=== PATIENT | female | born 1975 | race Caucasian/White ===

== ENCOUNTER 2023-03-24 15:22 | Outpatient (NON) | payer OTHER, SELFPAY ==
[2023-03-24 15:53] LABS: Influenza A QL RT-PCR Positive (Negative); Influenza B QL RT-PCR Negative (Negative); RSV RNA, RT-PCR Positive (Negative); SARS-CoV-2 RNA PCR Negative (Negative)
== END 2023-03-24 15:23 | disposition home or self-care (01) ==
LOC: ANHLAB 15:23
PROVIDERS: Visit Provider Hospitalist
DX: Z20.822 Contact with and (suspected) exposure to COVID-19 (principal)
CPT/HCPCS: 87637

== ENCOUNTER 2023-12-24 09:27 | Outpatient (CLI) | payer OTHER, SELFPAY ==
--- NOTE | ~2023-12-24 | MM_ITS ---
EXAMINATION: MM screening tyrel BI w mino HISTORY: Screening mammogram TECHNIQUE: Craniocaudal and mediolateral oblique 3-D tomosynthesis images were obtained and synthetic 2-D images were generated. CAD analysis was submitted and interpreted. COMPARISON: No prior mammogram is available for comparison at this institution. BREAST PARENCHYMAL COMPOSITION:Not Dense. The breasts are almost entirely fatty FINDINGS: No suspicious mass, calcification, or architectural distortion are identified in either dash ast to suggest malignancy. There has been no suspicious interval change. IMPRESSION: No mammographic evidence of malignancy. Recommend routine screening mammography in one year. BI-RADS Category 1: Negative Reviewed, dictated and finalized at location .
== END 2023-12-24 09:28 | disposition home or self-care (01) ==
PROVIDERS: Visit Provider Internal Medicine
DX: Z12.31 Encounter for screening mammogram for malignant neoplasm of breast (principal)
CPT/HCPCS: 77063; 77067

== ENCOUNTER 2024-01-21 22:42 | Emergency (ER) | payer OTHER, SELFPAY ==
--- NOTE | ~2024-01-21 | XR_ITS ---
XR chest 1V portable DATE: 01/21/2024 23:12 INDICATION: Shortness of breath TECHNIQUE: Portable upright AP chest on 01/21/2024 at 2311 hours COMPARISON: None FINDINGS: Heart size is within normal limits. No pulmonary infiltrate or consolidation, pleural effusion or pulmonary vascular congestion or pneumo thorax is evident. Right cervical rib. IMPRESSION: No active cardiopulmonary disease Reviewed, dictated and finalized at location A. ED SEAM OPERATOR CHAINSTITCH
[2024-01-21 22:47] VITALS: BP 119/65; PULSE 71; RESP 20; TEMP 36.6; O2SAT 95
--- NOTE | 2024-01-21 22:51 | ECG_ITS ---
Test Date: 2024-01-21 22:51:47 Measurements Intervals [place] Rate: 70 P: 121 MO: 143 QRS: 129 QRSD: 96 T: 137 QT: 440 QTc: 475 Interpretive Statements SINUS RHYTHM ARM LEADS REVERSED BASELINE WANDER- I, V6 ATYPICAL ECG No previous ECG available for comparison Electronically Signed On 01-22-2024 06:09:36 DIRECTOR OF GLOBAL SALES by Adonay Kam D.O.
[2024-01-21] MEDS: NALOXONE HCL 0.4 MG/ML VIAL 2 MG IV PUSH (23:02)
[2024-01-21 23:07] VITALS: BP 111/68; PULSE 70; RESP 14; O2SAT 95
[2024-01-21 23:15] LABS: Basophils Percent Auto 0.6 % (0.2-1.2); Eosinophils Absolute Auto 0.3 K/mm3 (0-0.3); Eosinophils Percent Auto 6.2 % (0-4.4); Hematocrit 36.1 % (37.0-47.0); Hemoglobin 11.4 g/dL (12.0-15.0); Immature Granulocyte Absolute 0.01 K/mm3 (0.00-0.031); Immature Granulocyte Percent A 0.2 % (0-0.5); Lymphocytes Absolute Auto 1.48 K/mm3 (0.9-3.2); Lymphocytes Percent Auto 28.7 % (18.3-44.2); Mean Corpuscular HGB Conc 31.6 g/dl (32-36); Mean Corpuscular Hemoglobin 31.2 pg (26-34); Mean Corpuscular Volume 98.9 fl (80-100); Mean Platelet Volume 10.4 fl (7.4-10.4); Monocytes Absolute Auto 0.6 K/mm3 (0.1-0.6); Neutrophils Absolute Auto 2.8 K/mm3 (1.3-6.7); Neutrophils Percent Auto 53.3 % (45.5-73.1); Platelet Count Result 171 k/mm3 (150-375); Red Blood Count 3.65 M/mm3 (4.2-5.4); Red Cell Distribution Width 17.3 % (11.5-14.5); White Blood Count 5.2 K/mm3 (4.5-10.0)
--- NOTE | 2024-01-21 23:17 | ED.GENADULT ---
HPI - General Adult General Chief complaint: Overdose Stated complaint: accidental overdose; oxycodone Time Seen by Provider: 01/21/24 22:50 History of Present Illness HPI narrative: patient 48-year-old female who presents emergency department with chief complaint of opiate overdose. The patient resident of local nursing facility hand decided to have some of her friends bring in some extra narcotics the patient states she took 2 extra narcotics and was found to be very drowsy by the longterm staff they gave her some Narcan which she woke up reports she still feels drowsy patient denies suicidal or homicidal ideation the patient reports she just wanted her chronic pain go away Related Data Allergies Allergy/AdvReac Type Severity Reaction Status Date / Time No Known Allergies Allergy Unverified 10/04/16 22:56 Review of Systems Review of Systems: A 10 system review of systems was completed on the patient and is negative except for what is stated in the HPI. Nursing and ancillary documentation was reviewed. PMFSH Social History Social History Substance use type: prescription drug Exam Narrative: GENERAL: Well-appearing, well-nourished, and in no acute distress. HEAD: Normocephalic, atraumatic. EYES: PERRLA and EOMI. ENT: Nares clear, no rhinorrhea or epistaxis. Mucous membranes moist. NECK: Supple. CHEST: rhonchi to auscultation. No respiratory distress. HEART: Regular rate and rhythm. No murmur heard. Normal peripheral pulses. ABDOMEN: Soft, nontender, nondistended, normal active bowel sounds. EXTREMITIES: Normal range of motion. No edema. SKIN: Warm, dry, no rash. NEURO: No focal deficits. Alert and oriented x3. PSYCH: Normal mood and affect. Course Vital Signs Vital signs: Vital Signs Temperature 36.6 C 01/21/24 22:47 Pulse Rate 71 01/21/24 22:47 Respiratory Rate 20 01/21/24 22:47 Blood Pressure 119/65 01/21/24 22:47 Pulse Oximetry 95 01/21/24 22:47 Oxygen Delivery Room Air 01/21/24 22:47 Temperature 36.6 C 01/21/24 22:47 Pulse Rate 66 01/22/24 05:26 Respiratory Rate 14 01/22/24 05:26 Blood Pressure 101/60 11/29/24 05:26 Pulse Oximetry 100 01/22/24 05:26 Oxygen Delivery Room Air 01/21/24 22:47 Medical Decision Making MDM Narrative Medical decision making narrative: differential diagnosis includes substance abuse, accidental overdose patient received Narcan at the facility and was also given Narcan at our facility the patient was observed in the emergency department for a period of time and is protecting her airway and has improved her symptomatology patient will be discharged back to the facility Vital Signs Vital Signs: Vital Signs Temperature 36.6 C 01/21/24 22:47 Pulse Rate 71 01/21/24 22:47 Respiratory Rate 20 01/21/24 22:47 Blood Pressure 119/65 01/21/24 22:47 Pulse Oximetry 95 01/21/24 22:47 Oxygen Delivery Room Air 01/21/24 22:47 Temperature 36.6 C 01/21/24 22:47 Pulse Rate 66 01/22/24 05:26 Respiratory Rate 14 01/22/24 05:26 Blood Pressure 101/60 01/22/24 05:26 Pulse Oximetry 100 01/22/24 05:26 Oxygen Delivery Room Air 01/21/24 22:47 Lab Data 01/21/24 23:09 01/21/24 23:07 Labs: Lab Results 01/21/24 01/21/24 01/22/24 Range/Units 23:07 23:09 00:13 WBC 5.2 (4.5-10.0) K/mm3 RBC 3.65 L (4.2-5.4) M/mm3 Hgb 11.4 L (12.0-15.0) g/dL Hct 36.1 L (37.0-47.0) % MCV 98.9 (80-100) fl MCH 31.2 (26-34) pg MCHC 31.6 L (32-36) g/dl RDW 17.3 H (11.5-14.5) % Plt Count 171 (150-375) k/mm3 MPV 10.4 (7.4-10.4) fl Immature Gran % (Auto) 0.2 (0-0.5) % Neut % (Auto) 53.3 (45.5-73.1) % Lymph % (Auto) 28.7 (18.3-44.2) % [place] % (Auto) 11.0 H (2.6-8.5) % Eos % (Auto) 6.2 H (0-4.4) % Baso % (Auto) 0.6 (0.2-1.2) % Lymph # (Auto) 1.48 (0.9-3.2) K/mm3 [place] # (Auto) 0.6 (0.1-0.6) K/mm3 Eos # (Auto) 0.3 (0-0.3) K/mm3 Baso # (Auto) 0.0 (0.0-0.1) K/mm3 Abs Immat Gran (auto) 0.01 (0.00-0.031) K/mm3 Absolute Neuts (auto) 2.8 (1.3-6.7) K/mm3 Absolute Nucleated RBC 0.000 (0.0-0.012) K/mm3 Nucleated RBC % 0.0 (0.0-0.2) % PT 15.3 H (11.1-14.7) Seconds INR 1.2 APTT 36.1 (22.3-36.8) Seconds Sodium 138 (137-145) mmol/L Potassium 4.3 (3.4-5.0) mmol/L Chloride 100 (98-107) mmol/L Carbon Dioxide 32 H (22-30) mmol/L Anion Gap 6 (4-12) mmol/L BUN 8 (7-17) mg/dL Creatinine 0.70 (0.7-1.0) mg/dL Estim Creat Clear Calc 87 ml/min Estimated GFR > 60 (59 - ) Glucose 148 H (65-110) mg/dL Lactic Acid 1.4 (0.7-2.0) mmol/L Calcium 9.0 (8.4-10.2) mg/dL Magnesium 2.0 (1.6-2.3) mg/dL Total Bilirubin 1.4 H (0.2-1.3) mg/dL AST 70 H (14-36) U/L ALT 36 H (6-35) U/L Alkaline Phosphatase 161 H (38-126) U/L Total Protein 8.0 (6.3-8.2) g/dL Albumin 3.9 (3.5-5.1) g/dL Urine Color Yellow (Yellow) Urine Appearance Clear (Clear) Urine pH 6.5 (5.0-9.0) Ur Specific [place] 1.024 (1.001-1.035) Urine Protein Negative (Negative) mg/dL Urine Glucose (UA) 3+ H (Negative) mg/dL Urine Ketones Negative (Negative) mg/dL Ur Blood (Man) Negative (Negative) Urine Nitrate Negative (Negative) Urine Bilirubin Negative (Negative) Urine Urobilinogen 1.0 (<2.0) mg/dL Leukocyte Esterase Rfl 1+ H (Negative) LORRIE/UL Urine RBC 0-2 (0-2) /hpf Urine WBC 6-10 H (0-3) /hpf Ur Squamous Epith Cells Occasional (Few) /hpf Urine Bacteria Rare /hpf Urine Casts 0-2 Salicylates < 1.0 L (2-20) mg/dL Urine Opiates Screen Negative (Negative) Urine Methadone Screen Negative (Negative) Acetaminophen < 10 L (10-30) ug/mL Ur Barbiturates Screen Negative (Negative) Ur Phencyclidine Scrn Negative (Negative) Ur Amphetamine Screen Negative (Negative) U Benzodiazepines Scrn Positive A (Negative) [place] < 0.2 L (0.6-1.2) mmol/L Urine Cocaine Screen Negative (Negative) U Cannabinoids Screen Positive A (Negative) ABG Data ABG results: 01/21/24 23:09 Puncture Site Right radial ABG pH 7.354 ABG pCO2 52.8 H ABG pO2 65.2 L ABG PO2/FiO2 Ratio 3.10 ABG HCO3 28.8 H ABG O2 Saturation 91.6 L ABG O2 Content 15.1 L ABG Base Excess 2.3 A-a Gradient 21.3 Oxyhemoglobin 88.7 L Total Hemoglobin 12.1 O2 Delivery Device Room air O2 Liters/Min Not Reportable FiO2 21 Discharge Plan Discharge Clinical Impression: Accidental drug ingestion Patient Disposition: NH Detention/Asst Living Condition: Stable Instructions: Antibiotic Form, Adult Overdose (ED) Additional Instructions: please avoid taking medications that are not prescribed to you. Please only take your normally prescribed medications at the doses that they are normally prescribed for you Follow-up/Referrals: PHYSICIAN,FIRE CONTROL TECHNICIAN [Primary Care Provider] - Time of Disposition: 05:25
[2024-01-21 23:20] VITALS: PULSE 71; RESP 13
[2024-01-21] MEDS: IPRATROPIUM 0.5 MG/ALBUTEROL SULFATE 2.5 MG AMPUL.NEB 3 ML INHALATION (23:20)
[2024-01-21 23:22] LABS: Add Urine Microscopic? YES; Appearance Urine Clear (Clear); Bacteria Urine Rare /hpf; Bilirubin Urine Negative (Negative); Blood Urine Negative (Negative); Color Urine Yellow (Yellow); Glucose Urine UA 3+ mg/dL (Negative); Ketones Urine Negative (Negative); Leukocyte Esterase Ur 1+ LEU/UL (Negative); Nitrate Urine Negative (Negative); Non Pathogenic Casts 0-2; Protein Urine Negative (Negative); RBC Urine 0-2 /hpf (0-2); Specific Grav Ur 1.024 (1.001-1.035); Squamous Epithelial Cell Urine Occasional /hpf (Few); pH Urine 6.5 (5.0-9.0)
[2024-01-21 23:26] LABS: Alanine Aminotransferase 36 U/L (6-35); Albumin Level 3.9 g/dL (3.5-5.1); Alkaline Phosphatase 161 U/L (38-126); Anion Gap 6 mmol/L (4-12); Aspartate Amino Transferase 70 U/L (14-36); Bilirubin,Total 1.4 mg/dL (0.2-1.3); Blood Urea Nitrogen 8 mg/dL (7-17); Carbon Dioxide 32 mmol/L (22-30); Chloride 100 mmol/L (98-107); Estimated CRCL calculation 87 ml/min; Estimated Glomerular Filt Rate > 60; Glucose 148 mg/dL (65-110); Potassium 4.3 mmol/L (3.4-5.0); Sodium 138 mmol/L (137-145)
[2024-01-21 23:27] LABS: INR 1.2; Partial Thromboplastin Time 36.1 Seconds (22.3-36.8); Prothrombin Time 15.3 Seconds (11.1-14.7)
[2024-01-21 23:28] LABS: Acetaminophen < 10 ug/mL (10-30); Salicylate < 1.0 mg/dL (2-20)
[2024-01-21 23:33] LABS: Amphetamine Screen Urine Negative (Negative); Barbiturate Screen Urine Negative (Negative); Benzodiazepines Screen Urine Positive (Negative); Cannabinoid Screen Urine Positive (Negative); Cocaine Screen Urine Negative (Negative); Methadone Screen Urine Negative (Negative); Opiate Screen Urine Negative (Negative); Phencyclidine Screen Urine Negative (Negative)
[2024-01-21 23:33] LABS: Lithium < 0.2 mmol/L (0.6-1.2)
[2024-01-21 23:53] VITALS: RESP 14
[2024-01-22] LABS: Alveolar/Arterial O2 Gradient 21.3 mmHg; Base Excess ABG 2.3 mEq/l (+/-2.0); Fractional Inspired Oxygen 21 %; HCO3 ABG 28.8 mEq/l (22.0-26.0); Oxygen Content ABG 15.1 %vol (16.0-22.0); Oxygen Saturation ABG 91.6 % (95.0-100.0); Oxyhemoglobin 88.7 % THb (90.0-100.0); PCO2 ABG 52.8 mmHg (35.0-45.0); PO2 ABG 65.2 mmHg (80.0-100.0); Total Hemoglobin 12.1 g/dL (12.0-18.0); pH ABG 7.354 (7.350-7.450)
[2024-01-22 00:01] LABS: Device ROOM AIR; Modified Allen's Test Pass; Site Drawn RIGHT RADIAL
[2024-01-22 00:26] LABS: Lactic Acid Reflex 1.4 mmol/L (0.7-2.0)
--- NOTE | 2024-01-22 00:35 | PCRCNOTE ---
G ran in time there was a problem with porting over results.
[2024-01-22 00:59] VITALS: BP 102/60; PULSE 71; RESP 14; O2SAT 100
--- NOTE | 2024-01-22 02:26 | PC.NURSE ---
poison control notified on pts plan of care.
--- NOTE | 2024-01-22 03:44 | PC.NURSE ---
Pt was able to ambulate with assistance but remains lethargic. Pt is now a&ox4 but continues to be somewhat difficult to arouse.
[2024-01-22 04:00] VITALS: BP 110/61; PULSE 66; RESP 14; O2SAT 100
[2024-01-22 05:26] VITALS: BP 101/60; PULSE 66; RESP 14; O2SAT 100
== END 2024-01-22 07:20 ==
PROVIDERS: Emergency Provider Emergency Medicine
DX: T40.2X1A Poisoning by other opioids, accidental (unintentional), initial encounter (principal)
CPT/HCPCS: 36415; 36600; 71045; 80053; 80143; 80178; 80179; 80307; 81001; 82805; 83605; 83735; 85018; 85025; 85610; 85730; 87086; 93005; 94640; 96374; 99284; J2310

== ENCOUNTER 2024-06-13 09:17 | Outpatient (CLI) | payer OTHER, SELFPAY ==
--- NOTE | ~2024-06-13 | CT_ITS ---
CT Scan of the Chest without Contrast: Clinical Indication: Lung cancer screening, nicotine dependence Technique: Contiguous sections were acquired throughout the chest without intravenous contrast. Dose reduction technique was used on this scan by utilizing automated exposure control and iterative recon struction technique. The dose-length product (DLP) was 117.50 mGy-cm. Findings: There is no evidence of any significant mediastinal, hilar or axillary lymphadenopathy. The mediastin al soft tissues appear normal. There is no evidence of pleural or pericardial effusion. The lungs are clear. No pulmonary nodules or infiltrates are noted. Images through the upper abdomen reveal multiple calcified gallstones. There is probable splenomegaly , partially imaged. Impression: Lung RADS 1: Negative. 12 month follow-up screening CT advised. Cholelithiasis and splenomegaly. Reviewed, dictated and finalized at location . Impression: Lung RADS 1: Negative. 12 month follow-up screening CT advised. Cholelithiasis and splenomegaly.
--- OUTSIDE RECORDS SUMMARY | 2024-06-13 10:13 | XMS_ITS | Encounter Summary ---
Author Organization [facility] Healthcare Address [address] [place] [id number] Care Team Providers Care Management Recruiter Name Role Phone No, Physician Primary Care Provider [phone] Encounter Details Date Type Department Care Team (Late st Contact Info) Description 03/20/2022 [facility] Out[facility] Hand Off Program [address] [place], [place] [phone] Abdullahi Mckeon Social History Tobacco Use Types Packs/Day Years Used Date Smoking Tobacco: Every Day Cigarettes Smokeless Tobacco: Never Alcohol Use Standard Drinks/Week Comments Yes 0 (1 standard drink = 0.6 oz pur e alcohol) 6 mixed drinks dialy PHQ-2 Answer Date Recorded PHQ-2 Total Score (If total score is 3 or more points, staff should administer the PHQ-9) 6 11/04/2019 Comments Unknown Sex and Gender Information Value Date Recorded Sex Assigned at Not on file Legal Sex Female 12:11 PM CDT Gender Identity Not on file Sexual Orientation Not on file documented as of this encounter Plan of Treatment Not on file documented as of this encounter Visit Diagnoses Not on filedocumented in this encounter Care Teams Management Recruiter Relationship Specialty Start Date End Date No, Physician PCP - General 11/02/19 documented as of this encounter
--- OUTSIDE RECORDS SUMMARY | 2024-06-13 10:13 | XMS_ITS | Clinical Summary ---
Author Organization [facility] Address [address] [place] [address] Care Team Providers Care Catalyst Operator Name Role Phone No, Physician Primary Care Provider [phone] Allergies Active Allergy Reactions Criticality Noted Date Comments Hydroxyzine Other (See comments),Itching Low 10/29/2021 Pt reports it gave me the shakes and a tic Shaky and ticks of neck Mold Unknown 09/09/2023 Naltrexone Microspheres Other (See comments),Unknown Low 10/03/2021 Twitching Medications multivitamin tablet Take 1 tablet by mouth daily Active cholecalciferol (VITAMIN D-3) 2000 unit tablet Take 2,000 Units by mouth daily Active albuterol HFA (PROVENTIL HFA,VENTOLIN HFA,PROAIR HFA) 90 mcg/actuation inhaler Inhale 2 puffs every 4 (four) hours as needed for wheezing 1 each 2 12/08/19 Active Additional Information Patient not taking.Reported on 09/09/2023 fluticasone propion-salmeteroL (ADVAIR DISKUS) 250-50 mcg/dose diskus inhaler Rinse mo 1 inhalation twice a day. Rinse mouth with water after use, Do not swallow. 1 each 2 12/08/19 22 Active folic acid (FOLVITE) 1 mg tablet Take 1 tablet (1 mg total) by mouth daily 30 tablet 2 12/08/19 22 Active glipiZIDE (GLUCOTROL) 5 mg tablet Take 1 tablet (5 mg total) by mouth daily 30 tablet 2 12/08/19 22 Active magnesium oxide (MAG-OX) 400 mg (241.3 mg elemental magnesium) tablet Take 1 tablet (400 mg total) by mouth daily 60 tablet 2 12/08/19 Active metFORMIN XR (GLUCOPHAGE XR) 750 mg 24 hr tablet Take 1 tablet (750 mg total) by mouth daily with breakfast 30 tablet 2 12/08/19 Active QUEtiapine (SEROquel) 100 mg tablet Take 1 tablet (100 mg total) by mouth nightly 30 tablet 2 12/08/19 Active propranolol LA (INDERAL LA) 60 mg 24 hr capsule Take 1 capsule (60 mg total) by mouth daily Active diphenhydrAMINE (BENADRYL) 25 mg capsule Take 25 mg by mouth nightly as needed for itching Active lactulose solution 10 gram/15mLIndicatio ns:Hepatic Encephalopathy Take 30 mL (20 g total) by mouth 3 (three) times a day 2700 mL 12/30/19 Active thiamine (VITAMIN B1) 100 mg tablet Take 1 tablet (100 mg total) by mouth daily 30 tablet 12/30/19 Active spironolactone (ALDACTONE) 50 mg tablet Take 1 tablet (50 mg total) by mouth daily 30 tablet 12/31/19 22 Active Farxiga 10 mg tablet 1 tablet (10 mg total) 09/04/19 24 Active furosemide (LASIX) 40 mg tablet Take 1 tablet (40 mg total) by mouth daily 08/27/19 24 Active lidocaine (LIDODERM) 5 % 07/03/19 24 Active melatonin tablet Take 2-4 tablets (2-4 mg total) by mouth nightly Active LANTUS 100 unit/mL vial for injection 08/20/19 24 Active HYDROcodone-acetam inophen (NORCO) 5-325 mg per tablet 08/21/19 24 Active omeprazole (PriLOSEC) 20 mg capsule Take 1 capsule (20 mg total) by mouth daily 08/27/19 24 Active montelukast (SINGULAIR) 10 mg tablet Take 1 tablet (10 mg total) by mouth nightly 08/31/19 24 Active traZODone (DESYREL) 150 mg tablet Take 1 tablet (150 mg total) by mouth nightly 08/28/19 24 Active ALPRAZolam (XANAX) 0.25 mg tablet Take 1 tablet (0.25 mg total) by mouth 08/26/19 24 Active gabapentin (NEURONTIN) 300 mg capsule Take 1 capsule (300 mg total) by mouth 08/22/19 24 Active gabapentin (NEURONTIN) 600 mg tablet Take 1 tablet (600 mg total) by mouth Active sertraline (ZOLOFT) 100 mg tablet 1.5 tablets (150 mg total) 09/04/19 24 Active oxyCODONE (ROXICODONE) 5 mg immediate release tablet Take 1 tablet (5 mg total) by mouth every 6 (six) hours as needed 11/03/19 24 Active meloxicam (MOBIC) 15 mg tablet Take 1 tablet (15 mg total) by mouth daily 30 tablet 12/31/19 24 025 Active Active Problems Problem Noted Date Diagnosed Date Primary osteoarthritis of right hip 12/31/2023 Vitamin D deficiency 09/09/2023 Pain of right hip joint 05/01/2022 Type 2 diabetes mellitus without complication Calculus of gallbladder with out cholecystitis without obstruction 12/29/2021 Hepatic encephalopathy 12/02/2021 Elevated liver enzymes 10/29/2021 Alcoholic cirrhosis 10/29/2021 Primary hypertension 10/29/2021 Chronic obstructive pulmonary disease 10/29/2021 Alcoholic 10/29/2021 Anxiety 10/29/2021 Low magnesium level 10/29/2021 Night terrors 10/29/2021 Right upper quadrant pain 10/29/2021 Severe major depression 10/29/2021 Type 2 diabetes mellitus with hyperglycemia 07/2021 Anisocoria 10/02/2021 Hepatitis 10/02/2021 Mild malnutrition 11/03/2019 Pancytopenia 11/02/2019 History of heroin use 11/02/2019 Simple chronic bronchitis 11/02/2019 Nicotine dependence 11/02/2019 Posttraumatic stress disorder 11/02/2019 Hyperbilirubinemia Hyponatremia Thrombocytopenia Macrocytic anemia Gastroesophageal reflux disease without esophagi tis Prolonged Q-T interval on ECG Resolved Problems Problem Noted Date Diagnosed Date Resolved Date Scleral discoloration 10/29/20212023 Decompensated hepatic cirrhosis 06/29/2021 09/09/2023 Alcohol use, unspecified wit h unspecified alcohol-induced disorder 11/02/2019 09/09/2023 Alcohol withdrawal syndrome without complication 11/02/2019 09/09/2023 Immunizations Immunization Administration Dates Next Due Influenza, Quadrivalent, Spl it, Preservative Free, Intramuscular 12/30/2021 Surgical History Surgery Date Site/Laterality Comments ABDOMINAL SURGERY BACK SURGERY US GUIDED THORACENTESIS 07/01/2021 N/A Medical History Medical History Date Comments Hypertension COPD (chronic obstructive pulmonary disease) (HC C) DM (diabetes mellitus) (HCC) Family History Medical History Relation Name Comments Alcohol abuse Daughter 1 Alcohol abuse Daughter 2 Alcohol abuse Father Hypertension Father Alcohol abuse Mother Hypertension Mother neck cancer Mother Arthritis Other Blood Clot Other Relation Name Status Comments Daughter 1 Alive Daughter 2 Alive Daughter 3 Alive Father Mother Other Social History Tobacco Use Types Packs/Day Years Used Date Smoking Tobacco: Every Day Cigarettes Smokeless Tobacco: Never Tobacco Cessation:Ready to Q uit: Not Asked; Counseling Given: Not Answered Alcohol Use Standard Drinks/Week Comments Yes 0 (1 standard drink = 0.6 oz pur e alcohol) 6 mixed drinks dialy AUDIT-C Answer Date Recorded Q1: How often do you have a drink containing alc ohol? Never 12/31/2023 Average Number of Drinks Not on file 024 Frequency of Binge Drinking Not on file 08/2023 PHQ-2 Answer Date Recorded PHQ-2 Total Score (If total score is 3 or more points, staff should administer the PHQ-9) 6 11/04/2019 Comments Unknown Sex and Gender Information Value Date Recorded Sex Assigned at Not on file Legal Sex Female 12:11 PM CDT Gender Identity Not on file Sexual Orientation Not on file Obstetrics History Last Filed Vital Signs Vital Sign Reading Time Taken Comments Blood Pressure 123/76 12/31/2023 10:56 AM STAFF AIR DEFENSE OFFICER Pulse 67 12/31/2023 10:56 AM STAFF AIR DEFENSE OFFICER Temperature 36.2 C (97.2 F) 12/29/2021 11:59 PM STAFF AIR DEFENSE OFFICER Respiratory Rate 16 12/29/2021 11:59 PM STAFF AIR DEFENSE OFFICER Oxygen Saturation 100% 12/29/2021 11:59 PM STAFF AIR DEFENSE OFFICER Inhaled Oxygen Concentration - - Weight 80.7 kg (178 lb) 12/31/2023 10:56 AM STAFF AIR DEFENSE OFFICER Height 160 cm (5' 3 ) 12/31/2023 10:56 AM STAFF AIR DEFENSE OFFICER Body Mass Index 31.53 12/31/2023 10:56 AM STAFF AIR DEFENSE OFFICER Plan of Treatment Health Maintenance Due Date Last Done Comments Albumin Creatinine Ratio, Urine 1973 Breast Cancer Screening-Mammogram 1973 Cervical Cancer Screening 1973 Colon Cancer Screening-Colonoscopy 1973 Dilated Eye Exam 1973 Foot Exam 1973 Regular Well Visit/Exam 18-64 05/16/1991 Depression Screening 10/31/2020 11/01/2019 Hemoglobin A1C 06/03/2022 12/03/2021 Lipid Panel 10/02/2022 10/02/2021 eGFR 12/29/2022 12/29/2021, 1106/2021, 12/27/2021, Additional history exists Pneumococcal vaccine <65 (3 of 3 - PCV20 or PCV21) 05/16/2023 11/12/2016, 11/12/2016 Zoster Vaccine (1 of 2) 05/16/2023 Covid-19 Vaccine (4 - 2023-2 5 season) 2023 04/29/2021, 12/28/2020, 06/21/2020 Influenza Vaccine (Season Ended) 2024 12/30/2021, 01/30/2019, 09/23/2016 DTaP/Tdap/Td Vaccine (2 - Td or Tdap) 10/05/2026 10/05/2016 Hepatitis B Screening Completed 12/03/2021 Hepatitis C Screening Completed 12/04/2021, 022 Procedures Procedure Name Priority Date/Time Associated Diagnosis Comments EGFR Routine 12/29/2021 4:39 AM STAFF AIR DEFENSE OFFICER HEPATITIS C RNA, QUANTITATIVE, PCR Routine 12/04/2021 8:36 AM CDT HEMOGLOBIN A1C Routine 12/03/2021 3:43 AM CDT from Last 3 Months or Most Recently Relevant to Health Maintenance Results * eGFR (12/29/2021 4:39 AM STAFF AIR DEFENSE OFFICER) eGFR 123 mL/min/1. 73 m2 KENNEDY POLO (LEROY) Comment: Interpretive Data Reference Interval Normal >/= 90 mL/min/1.73m2 Mildly decreased* 60 - 89 mL/min/1.73m2 Mildly to moderately decreased 45 - 59 mL/min/1.73m2 Moderately to severely decreased 30 - 44 mL/min/1.73m2 Severely decreased 15 - 29 mL/min/1.73m2 Kidney Failure < 15 mL/min/1.73m2 *Relative to young adult level Estimated glomerular filtration rate is determined by the 2020 CKD-EPI equation recommended by the National Kidney Foundation (A Unifying Approach to GFR Estimation: Recommendations of the NKF-ASK Task Force on Reassessing the Inclusion of Race in Diagnosing Kidney Disease, JASN 2020). The CKD-EPI equation should not be used for patients with unstable renal function and has not been validated in children and those over 70. Current interpretive data was last reviewed 2020. Blood 12/29/2021 4:39 AM STAFF AIR DEFENSE OFFICER 12/29/2021 5:28 AM STAFF AIR DEFENSE OFFICER us Celia Mendoza MD LAB BLOOD ORDERABLES Nadia l Result Performing Organization Address City/[facility]/ZIP Co de Phone Number KENNEDY [facility] [address] [facility] [place] [address] * Hepatitis C (HCV) RNA PCR, quantitative (12/04/2021 8:36 AM CDT) Pathologist [facility] HCV RNA result Not Detected KENNEDY Comment: The quantifiable range of this assay is 15 IU/mL to 100,000,000 IU/mL (1.18 log IU/mL to 8.00 log IU/mL). Testing was performed by the DESTINI 6800 HCV Test ([facility] Testing performed at [facility] Current Interpretive Data was last revised on 2020 Testing performed by: [facility], [address] [facility] [place] [address] Blood 12/04/2021 8:36 AM CDT 12/04/2021 11:30 AM CDT us Gonzalo Oliver MD LAB MICROBIOLOGY - GE NERAL ORDERABLES Final Result Performing Organization Address City/[facility]/ZIP Co de Phone Number KENNEDY [address] [facility] Department [place] [address] * (ABNORMAL) Hemoglobin A1c (12/03/2021 3:43 AM CDT) Hgb A1C 7.2(H) 4.0 - 5.6 % KENNEDY GARCIA Estimated Average Glucose 160 mg/dL KENNEDY GARCIA Comment: The ADA recommends reporting an estimated Average Glucose (eAG) with all Hemoglobin A1c results using the equation derived from a study of 507 normal and diabetic adults. Minority populations were underrepresented and children were not included. (Diabetes Care 31:9466-5714, 2008). The eAG is not equivalent to a fasting glucose. Blood 12/03/2021 3:43 AM CDT 12/03/2021 4:02 AM CDT us Cholo Pérez MD LAB BLOOD ORDERABLES Final Resul t KENNEDY GARCIA [address] [facility] Department [place] [address] from Last 3 Months or Most Recently Relevant to Health Maintenance Insurance [facility] Advance Directives For more information, please contact: [phone] * Full Code (Latest Code Status on File) Date Activated Date Inactivated Comments 12/26/2021 9:11 PM 12/30/2021 12:14 PM * Full Code Date Activated Date Inactivated Comments 12/02/2021 9:53 PM 12/07/2021 6:59 PM * Full Code Date Activated Date Inactivated Comments 11/02/2019 12:24 PM 11/05/2019 4:24 PM Care Teams Catalyst Operator Relationship Specialty Start Date End Date No, Physician PCP - General 11/02/19
--- OUTSIDE RECORDS SUMMARY | 2024-06-13 10:13 | XMS_ITS | Referral Summary ---
Author Organization [facility] Address [address] [place] [address] Care Team Providers Care Teamsite Developer Name Role Phone No, Physician Primary Care Provider [phone] Allergies Active Allergy Reactions Criticality Noted Date [...] Quadrivalent, Spl it, Preservative Free, Intramuscular 12/30/2021 Social History Tobacco Use Types Packs/Day Years [...] on file Sexual Orientation Not on file Last Filed Vital Signs Vital Sign Reading Time Taken Comments Blood Pressure 123/76 12/31/2023 10:56 AM CELLULAR BIOLOGIST Pulse 67 12/31/2023 10:56 AM CELLULAR BIOLOGIST Temperature 36.2 C (97.2 F) 12/29/2021 11:59 PM CELLULAR BIOLOGIST Respiratory Rate 16 12/29/2021 11:59 PM CELLULAR BIOLOGIST Oxygen Saturation 100% 12/29/2021 11:59 PM CELLULAR BIOLOGIST Inhaled Oxygen Concentration - - Weight 80.7 kg (178 lb) 12/31/2023 10:56 AM CELLULAR BIOLOGIST Height 160 cm (5' 3 ) 12/31/2023 10:56 AM CELLULAR BIOLOGIST Body Mass Index 31.53 12/31/2023 10:56 AM CELLULAR BIOLOGIST Plan of Treatment Not on file Procedures Procedure Name Priority Date/Time Associated Diagnosis Comments EGFR Routine 12/29/2021 4:39 AM CELLULAR BIOLOGIST HEPATITIS C RNA, QUANTITATIVE, PCR Routine 12/04/2021 8:36 AM CDT HEMOGLOBIN A1C Routine 12/03/2021 3:43 AM CDT from Last 3 Months or Most Recently Relevant to Health Maintenance Results * eGFR (12/29/2021 4:39 AM CELLULAR BIOLOGIST) eGFR 123 mL/min/1. 73 m2 [facility] POLO [...] last reviewed 2020. Blood 12/29/2021 4:39 AM CELLULAR BIOLOGIST 12/29/2021 5:28 AM CELLULAR BIOLOGIST us Celia Mendoza MD LAB BLOOD ORDERABLES Nadia calderon Result [facility] 1 [facility] Department of Laboratories [place] [id number] * Hepatitis C (HCV) RNA PCR, quantitative (12/04/2021 8:36 AM CDT) [facility] HCV RNA result Not Detected [facility] Comment: The quantifiable range of this assay is 15 IU/mL to 100,000,000 IU/mL (1.18 log IU/mL to 8.00 log IU/mL). Testing was performed by the DESTINI 6800 HCV Test ([employer] Testing performed at [facility] Current Interpretive Data was last revised on 2020 Testing performed by: [facility], 1 [place]., [address] Blood 12/04/2021 8:36 AM CDT 12/04/2021 11:30 AM CDT us Gonzalo Oliver MD LAB MICROBIOLOGY - NERAL ORDERABLES Final Result [facility] [address] [place] [address] * (ABNORMAL) Hemoglobin A1c (12/03/2021 3:43 AM CDT) Hgb A1C 7.2(H) 4.0 - 5.6 % [facility] Estimated Average Glucose 160 mg/dL [facility] Comment: The ADA recommends reporting an estimated Average Glucose (eAG) with all Hemoglobin A1c results using the equation derived from a study of 507 normal and diabetic adults. Minority populations were underrepresented and children were not included. (Diabetes Care 31:1600-8526, 2008). The eAG is not equivalent to a fasting glucose. Blood 12/03/2021 3:43 AM CDT 12/03/2021 4:02 AM CDT Cholo Pérez MD LAB BLOOD ORDERABLES Final Resul t Performing Organization Address City/[facility]/ZIP Co de Phone Number [facility] [place] [address] from Last 3 Months or Most Recently Relevant to Health Maintenance Insurance [facility] [address] Advance Directives For more information, please contact: [phone] * Full Code (Latest Code Status on File) Date Activated Date Inactivated Comments 12/26/2021 9:11 PM 12/30/2021 12:14 PM * Full Code Date Activated Date Inactivated Comments 12/02/2021 9:53 PM 12/07/2021 6:59 PM * Full Code Date Activated Date Inactivated Comments 11/02/2019 12:24 PM 11/05/2019 4:24 PM Care Teams Teamsite Developer Relationship Specialty Start Date End Date No, Physician PCP - General 11/02/19
--- OUTSIDE RECORDS SUMMARY | 2024-06-13 10:13 | XMS_ITS | CONTINUITY OF CARE DOCUMENT ---
Author Name jamia blandon Address Unknown Organization [facility] Address [address] [place] [address] Phone [phone] Care Team Providers Care Property Accountant Name Role Phone Indra CASAREZ, Alphonse Unavailable MONICA ARNOLD MD Unavailable [phone] MONICA ARNOLD MD Unavailable [phone] INSURANCE PROVIDERS Payer name Policy type / Coverage type [place] red republican [place] MED[employer] Medicaid [id number]
--- NOTE | 2024-06-14 16:23 | WPDPFTINT ---
PFT Procedure Performed PFT Procedure Performed Spirometry with Pre/Post Bronchodilator Plethysmography (Lung Vol) Diffusing Cap (DLCO) Flow Vol Loop PFT Interpretation DOS: 06/13/2024 REQUESTING: Ronak Acuna APRN REASON FOR TESTING: COPD PULMONARY FUNCTION TESTS Results are reliable and reproducible. Repeatability of spirometry FEV1 maneuver pre and post bronchodilator is Grade A. Brody: GLI 2012 reference equations were used. Spirometry: The pre-bronchodilator FEV1 is 1.37 L, 50%. The pre-bronchodilator FVC is 2.27 L, 66%. The FEV1/FVC ratio is 60%. After bronchodilator, the FEV1 is 1.25 L, 45%, -9%. After bronchodilator, the FVC is 2.25 L, 65%, -1%. The FEV1/FVC ratio is 55%. Lung volumes: The total lung capacity is 5.26 L, 104%. The residual volume is 2.48 L, 137%. The RV/TLC is 47%, increased. Airway resistance is elevated. Diffusion: DLCO is 11.2, 50%. The DLCO/VA is 2.65, 58%. Flow volume loop: The flow volume loop shows significant coving of the expiratory limb consistent with obstruction. IMPRESSION: This study shows moderately severe obstructive ventilatory impairment without response to bronchodilator, air trapping and a moderate diffusion impairment. Lack of response to bronchodilator should not preclude use if clinically indicated. There are no prior studies to compare. Elizabeth Skinner MD
--- NOTE | 2024-06-14 16:38 | WPDSIXMINUTE ---
Six Minute Walk Procedure Procedure Performed Pulmonary Stress Test (6 min walk) Six Minute Walk Six Minute Walk: DOS: 06/13/2024 REQUESTING: Ronak Acuna APRN REASON FOR TESTING: COPD SIX MINUTE WALK This test was conducted per ATS guidelines. The initial saturation was 98%, and initial heart rate was 66 beats per minute. The patient walked using her own wheeled walker, stopping twice for 20 seconds each time 2 2 hip pain and shortness of breath, completing 137 m/450 ft. The saturation at the end of testing was 96%, and the heart rate was 76 beats per minute.Her dyspnea/fatigue score was 1 at the start of testing, and 4 at the end of testing. IMPRESSION: This study shows distance walked is less than normal for the patient's age. She did not desaturate, no supplemental oxygen is indicated with exertion. Elizabeth Skinner MD
== END 2024-06-13 09:18 | disposition home or self-care (01) ==
PROVIDERS: PCP Internal Medicine; Visit Provider Nurse Practitioner Family
DX: Z12.2 Encounter for screening for malignant neoplasm of respiratory organs (principal); Z87.891 Personal history of nicotine dependence; J44.9 Chronic obstructive pulmonary disease, unspecified
CPT/HCPCS: 71271; 94060; 94618; 94726; 94729

== ENCOUNTER 2024-08-31 00:55 | Emergency (ER) | payer OTHER, SELFPAY ==
[2024-08-31] VITALS (19 sets, daily range): BP systolic 95–108; BP diastolic 47–64; PULSE 63–72; RESP 11–20; TEMP 36.5; O2SAT 93–97
--- NOTE | ~2024-08-31 | XR_ITS ---
AP view of the pelvis and AP and lateral views of the right hip Clinical history: Pain Findings: No acute fracture or dislocation is seen. Osseous alignment is anatomic. Probable mild dege nerative changes or hip joint. Soft tissues are unremarkable. Impression: No acute abnormality. Mild degenerative change of the right hip joint, similar to prior exam. Erosive change of the femoral head less likely. Reviewed, dictated and finalized at location . Impression: No acute abnormality. Mild degenerative change of the right hip joint, similar to prior exam. Erosive change of the femoral head less likely.
--- OUTSIDE RECORDS SUMMARY | 2024-08-31 01:06 | XMS_ITS | Encounter Summary ---
Author Organization [facility] Address [address] [place] [address] Care Team Providers Care Concessionist Name Role Phone No, Physician Primary Care Provider [phone] Encounter Details Date Type Department Care Team (Late st Contact Info) Description 03/20/2022 [facility] Outreach [facility] Warm Hand Off Program [address] [place], [place] [phone] Abdullahi Mckeon Social History Tobacco Use Types [...] on filedocumented in this encounter Care Teams Concessionist Relationship Specialty Start Date End Date No, Physician PCP - General 11/02/19 documented as of this encounter
--- OUTSIDE RECORDS SUMMARY | 2024-08-31 01:06 | XMS_ITS | Clinical Summary ---
Author Organization [facility] Address [address] [place] [address] Care Team Providers Care Developing Machine Tender Name Role Phone No, Physician Primary Care Provider [phone] Allergies Active Allergy Reactions Criticality Noted Date [...] Comments Blood Pressure 123/76 12/31/2023 10:56 AM DIETETICS PROFESSOR Pulse 67 12/31/2023 10:56 AM DIETETICS PROFESSOR Temperature 36.2 C (97.2 F) 12/29/2021 11:59 PM DIETETICS PROFESSOR Respiratory Rate 16 12/29/2021 11:59 PM DIETETICS PROFESSOR Oxygen Saturation 100% 12/29/2021 11:59 PM DIETETICS PROFESSOR Inhaled Oxygen Concentration - - Weight 80.7 kg (178 lb) 12/31/2023 10:56 AM DIETETICS PROFESSOR Height 160 cm (5' 3) 12/31/2023 10:56 AM DIETETICS PROFESSOR Body Mass Index 31.53 12/31/2023 10:56 AM DIETETICS PROFESSOR Plan of Treatment Health Maintenance Due Date [...] season) 2023 04/29/2021, 12/28/2020, 06/21/2020 Influenza Vaccine (#1) 2024 , 01/30/2019, 09/23/2016 DTaP/Tdap/Td Vaccine (2 - Td or Tdap) 10/05/2026 10/05/2016 Hepatitis B Screening Completed 12/03/2021 Hepatitis C Screening Completed 12/04/2021, 022 Procedures Procedure Name Priority Date/Time Associated Diagnosis Comments EGFR Routine 12/29/2021 4:39 AM DIETETICS PROFESSOR HEPATITIS C RNA, QUANTITATIVE, PCR Routine 12/04/2021 8:36 AM CDT HEMOGLOBIN A1C Routine 12/03/2021 3:43 AM CDT from Last 3 Months or Most Recently Relevant to Health Maintenance Results * eGFR (12/29/2021 4:39 AM DIETETICS PROFESSOR) eGFR 123 mL/min/1. 73 m2 [facility] POLO [...] last reviewed 2020. Blood 12/29/2021 4:39 AM DIETETICS PROFESSOR 12/29/2021 5:28 AM DIETETICS PROFESSOR us Celia Mendoza MD LAB BLOOD ORDERABLES Nadia l Result Performing Organization Address City/[facility]/ZIP Co de Phone Number [facility] 1 [facility] [place] [address] * Hepatitis C (HCV) RNA PCR, quantitative (12/04/2021 8:36 AM CDT) Pathologist [facility] HCV RNA result Not Detected [facility] Comment: The quantifiable range of this assay is 15 IU/mL to 100,000,000 IU/mL (1.18 log IU/mL to 8.00 log IU/mL). Testing was performed by the DESTINI 6800 HCV Test ([employer] Testing performed at [facility] Current Interpretive Data was last revised on 2020 Testing performed by: [facility], 1 [place]., [address] Blood 12/04/2021 8:36 AM CDT 12/04/2021 11:30 AM CDT us Gonzalo Oliver MD LAB MICROBIOLOGY - GE NERAL ORDERABLES Final Result Performing Organization Address City/[facility]/ZIP Co de Phone Number [facility] [address] [facility] Department [place] [address] * (ABNORMAL) Hemoglobin A1c (12/03/2021 3:43 AM CDT) Hgb A1C 7.2(H) 4.0 - 5.6 % [facility] GARCIA Estimated Average Glucose 160 mg/dL [facility] GARCIA Comment: The ADA recommends reporting an estimated Average Glucose (eAG) with all Hemoglobin A1c results using the equation derived from a study of 507 normal and diabetic adults. Minority populations were underrepresented and children were not included. (Diabetes Care 31:7283-1749, 2008). The eAG is not equivalent to a fasting glucose. Blood 12/03/2021 3:43 AM CDT 12/03/2021 4:02 AM CDT us Cholo Pérez MD LAB BLOOD ORDERABLES Final Resul t [facility] GARCIA [address] [facility] Department [place] [address] from Last 3 Months or Most Recently Relevant to Health Maintenance Insurance [facility] Advance Directives For more information, please contact: [phone] * Full Code (Latest Code Status on File) Date Activated Date Inactivated Comments 12/26/2021 9:11 PM 12/30/2021 12:14 PM * Full Code Date Activated Date Inactivated Comments 12/02/2021 9:53 PM 12/07/2021 6:59 PM * Full Code Date Activated Date Inactivated Comments 11/02/2019 12:24 PM 11/05/2019 4:24 PM Care Teams Developing Machine Tender Relationship Specialty Start Date End Date No, Physician PCP - General 11/02/19
--- OUTSIDE RECORDS SUMMARY | 2024-08-31 01:06 | XMS_ITS | Continuity of Care Document ---
Author Organization [facility] Address [address] [facility] [address] [place] [address] Phone Care Team Providers Care District Sales Leader Name Role Phone Head OD, Peng Unavailable Unavailable Advance Directives Directive Yes / No Effective Date File Name No Information Encounters Encounter Description Practice Location Reason(s) For Visit Diagnoses Date Provider Providers Copied on Encounter [facility], [address], [place], [place], [id number], [place] tel:[phone] [facility] No Information 4-200 0 Head OD Peng. [address] , [address], [place], [address], [place]. tel:[phone] Family History Family Member Type Diagnosis Age At Onset No Information Payers Payer name Insurance type Covered green party ID Authoriza tion(s) Medicaid [facility] [id number] Social History Type Description Quantity Date Captured Comments Sex Female Smoking Status No Information Chief Complaint And Reason For Visit No Information Reason For Referral Reason For Referral No Information History Of Present Illness Encounter Date Complaint History Of Prese nt Illness No Information Functional Status Date Functional Assessmen t No Information Instructions Date Instruction Additional Infor mation No Information Assessments Type Assessment Date No Information Patient Care Teams Name Effective Dates (start - stop) Status Members No Information
--- OUTSIDE RECORDS SUMMARY | 2024-08-31 01:06 | XMS_ITS | Patient Health Record ---
Author Organization [facility] Address [address] [place] [address] Care Team Providers Care Flanging Machine Operator Name Role Phone Heladio Swain Primary Care Provider [phone] Allergies Allergen (clinical drug ingredient) Drug/Non Drug Allergy documented on EMR Reaction Allergy Type Onset Date Status naltrexone Vivitrol Unknown Drug Allergy Active Mold Unknown Allergy Active Reason For Referral No Information Medications Medication SIG (Take, Route, Frequency, Duration) Notes Start Date End Date Status Promethazine HCl 25 MG 1 tablet as neede d Orally every 12 hrs; Duration: 30 day(s) Active Spironolactone 50 MG 1 tablet Orally Once a day 09/06/2021 Active hydrOXYzine HCl 50 MG 1 tablet as needed Orally every 4 hrs Active Fluticasone-Salmeterol 250-50 MCG/ACT 1 puff Inhalation Twice a day; Duration: 30 days Active Advair HFA 115-21 MCG/ACT 2 puffs Inhalation Twice a day Active glipiZIDE 5 MG 1 tablet 30 minutes before breakfast Orally Once a day; Duration: 30 days 11/22/2021 Active Multivitamin - 1 tablet Orally Once a day; Duration: 30 day(s) Active Mirtazapine 15 MG 0.5 tablet at bedtime Orally Once a day; Duration: 30 days Active QUEtiapine Fumarate 25 MG 1 tablet at bedtime Orally Once a day; Duration: 30 days 11/22/2021 Active Propranolol HCl ER 60 MG 1 capsule Orally Once a day 09/06/2021 Active Gabapentin 600 MG 1 tablet Orally three times daily; Duration: 30 days Active metFORMIN HCl ER 750 MG 1 tablet with evening meal Orally Once a day; Duration: 30 day(s) 08/28/2021 Active Albuterol Sulfate HFA 108 (90 Base) MCG/ACT 1 puff as needed Inhalation every 4 hrs Active Paxil 40 MG 1 tablet in the morning Orally Once a day; Duration: 30 days 09/04/2021 Active Magnesium 400 MG 1 tablet Orally once daily 09/06/2021 Active Lasix 20 MG 1 tablet Orally Once a day Active Ondansetron HCl 4 MG 1 tablet as needed Orally Twice a day; Duration: 30 days 11/22/2021 Active carBAMazepine 200 MG 1 tablet Orally Twice a day; Duration: 30 day(s) Active Muscle Rub - as directed Externally Active Librium loading dose Not-Mathew ing Social History Tobacco Use: Social History Observation Description Date Details (start date - stop date) Current Smoker NA - NA Sex Assigned At : Social History Observation Description Sex Assigned At Female Dont use, Tobacco Use/Smoking Question Answer Notes Are you a current every day smoker Problems Problem Type SNOMED Code ICD Code Onset Dates Problem Status W/U Status Risk Notes Problem Hypomagnesemia (283891413) Hypomagnesemia (E83.42) Active confirmed Problem Tobacco user (493377897) Nicotine dependence, unspecified, uncomplicated (F17.200) Active confirmed Problem Anisocoria (15043957) Anisocoria (H57.02) Active confirmed Problem Alcoholic cirrhosis (163269522) Alcoholic cirrhosis of liver with ascites (K70.31) 01/03/20 22 Active confirmed Problem Tobacco dependence (14785353) Tobacco dependence (F17.200) Active confirmed Problem Posttraumatic stress disorder (46966346) PTSD (post-traumatic stress disorder) (F43.10) Active confirmed Problem Vitamin D deficiency (21630644) Vitamin D deficiency (E55.9) Active confirmed Problem Nicotine dependence (25276043) Nicotine dependence (F17.200) Active confirmed Problem Edema (66917311) Edema (R60.9) Active confirmed Problem COPD - Chronic obstructive pulmonary disease (94130924) Chronic obstructive pulmonary disease, unspecified COPD type (J44.9) Active confirmed Problem Type II diabetes mellitus without complication (132074736) Type 2 diabetes mellitus without complication, without long-term current use of insulin (E11.9) 01/03/20 22 Active confirmed Problem Alcohol dependence (00733097) Alcohol use disorder, severe, dependence (F10.20) Active confirmed Problem Hyperglycemia due to type 2 diabetes mellitus (200341634230506) Type 2 diabetes mellitus with hyperglycemia, without long-term current use of insulin (E11.65) 01/03/20 22 Active confirmed Problem Alcohol related disorder (F10.99) Active confirmed Plan Of Treatment Pending Test Test Name Order Date Prothrombin Time (PT) 09/06/2021 Insurance Providers Payer Name Payer Address Payer Phone Subscriber Number Group Number Insured Name Patient Relationship to Insured Coverage Start Date Coverage End Date [employer] [address] [place] [address] [id number] Trisha Rain Self - patient is the insured 2 [employer] [address] [place] [address] [id number] Trisha Rain Self - patient is the insured 2 Medications Administered Medication Instructions Date of Administration Dosage Notes Vivitrol 09/24/2021 380 mg tolerated well . instructed to massage area over next couple of days. verbalized understanding. no questions. pt observeed for 30 minutes after injection. Medical (General) History Medical History History ICD Code OUD AUD Liver disease Hernia DM2 Hypertension Asthma COPD Alcohol Use Disorder Surgical History Surgery Date(Month/Year) Hospitalization History Reason Date(Month/Year) [place] [facility] for Alcohol withdra ws & mental health 08/2021 child x3
--- OUTSIDE RECORDS SUMMARY | 2024-08-31 01:06 | XMS_ITS | Referral Summary ---
Author Organization [facility] Address [address] [place] [address] Care Team Providers Care Real Estate Agent/Broker Name Role Phone No, Physician Primary Care Provider [phone] Allergies Active Allergy Reactions Criticality Noted Date [...] Comments Blood Pressure 123/76 12/31/2023 10:56 AM BOOK COVERER Pulse 67 12/31/2023 10:56 AM BOOK COVERER Temperature 36.2 C (97.2 F) 12/29/2021 11:59 PM BOOK COVERER Respiratory Rate 16 12/29/2021 11:59 PM BOOK COVERER Oxygen Saturation 100% 12/29/2021 11:59 PM BOOK COVERER Inhaled Oxygen Concentration - - Weight 80.7 kg (178 lb) 12/31/2023 10:56 AM BOOK COVERER Height 160 cm (5' 3) 12/31/2023 10:56 AM BOOK COVERER Body Mass Index 31.53 12/31/2023 10:56 AM BOOK COVERER Plan of Treatment Not on file Procedures Procedure Name Priority Date/Time Associated Diagnosis Comments EGFR Routine 12/29/2021 4:39 AM BOOK COVERER HEPATITIS C RNA, QUANTITATIVE, PCR Routine 12/04/2021 8:36 AM CDT HEMOGLOBIN A1C Routine 12/03/2021 3:43 AM CDT from Last 3 Months or Most Recently Relevant to Health Maintenance Results * eGFR (12/29/2021 4:39 AM BOOK COVERER) eGFR 123 mL/min/1. 73 m2 [facility] POLO [...] last reviewed 2020. Blood 12/29/2021 4:39 AM BOOK COVERER 12/29/2021 5:28 AM BOOK COVERER us Celia Mendoza MD LAB BLOOD ORDERABLES Nadia calderon Result [facility] 1 [facility] Department of Laboratories [place] [id number] * Hepatitis C (HCV) RNA PCR, quantitative (12/04/2021 8:36 AM CDT) [facility] HCV RNA result Not Detected [facility] Comment: The quantifiable range of this assay is 15 IU/mL to 100,000,000 IU/mL (1.18 log IU/mL to 8.00 log IU/mL). Testing was performed by the DESTINI 6800 HCV Test ([employer] Testing performed at [facility] Current Interpretive Data was last revised on 2020 Testing performed by: [facility], [address] [place] [address] Blood 12/04/2021 8:36 AM CDT 12/04/2021 11:30 AM CDT us Gonzalo Oliver MD LAB MICROBIOLOGY - NERAL ORDERABLES Final Result [facility] [address] [place] [address] * (ABNORMAL) Hemoglobin A1c (12/03/2021 3:43 AM CDT) Hgb A1C 7.2(H) 4.0 - 5.6 % [facility] Estimated Average Glucose 160 mg/dL [facility] Comment: The ADA recommends reporting an estimated Average Glucose (eAG) with all Hemoglobin A1c results using the equation derived from a study of 507 normal and diabetic adults. Minority populations were underrepresented and children were not included. (Diabetes Care 31:1353-9141, 2008). The eAG is not equivalent to a fasting glucose. Blood 12/03/2021 3:43 AM CDT 12/03/2021 4:02 AM CDT Cholo Pérez MD LAB BLOOD ORDERABLES Final Resul t Performing Organization Address City/[facility]/ZIP Co de Phone Number [facility] [place] [address] from Last 3 Months or Most Recently Relevant to Health Maintenance Insurance [facility] [address] Advance Directives For more information, please contact: [phone] * Full Code (Latest Code Status on File) Date Activated Date Inactivated Comments 12/26/2021 9:11 PM 12/30/2021 12:14 PM * Full Code Date Activated Date Inactivated Comments 12/02/2021 9:53 PM 12/07/2021 6:59 PM * Full Code Date Activated Date Inactivated Comments 11/02/2019 12:24 PM 11/05/2019 4:24 PM Care Teams Real Estate Agent/Broker Relationship Specialty Start Date End Date No, Physician PCP - General 11/02/19
--- OUTSIDE RECORDS SUMMARY | 2024-08-31 01:07 | XMS_ITS | Data Portability ---
Author Organization [place] - [facility] [employer], Main Office Address [address] [place] [address] Care Team Providers Care Water Resource Agent Name Role Phone MALLY NIECY Primary Care Provider MALLY NIECY Referring Provider [phone] Assessment Encounter Date Assessment Date Assessment LastModified by Organization Details LastModified Time 05/02/2022 05/02/2022 HPI: Patient returns. She is here because she has developed pain in the lateral aspect of both hips. This pain started about 4 months ago at this point is fairly miserable. We have seen her in the past for this problem she has had trochanteric bursitis. We have not seen her for this since 2020. She came in today wanting cortisone injection again. Patient has a significant medical history. She is a an alcoholic, she has been admitted to [facility] for the last 4 months. When she was admitted she states she has ascites and they drained off over 40 lb of fluid from her. She also has uncontrolled diabetes. She brought in paperwork from the [facility] which showed her sugars are in the 300-400 range on a regular basis. She is on insulin and medication as well. This was in her paperwork as well. Physical exam: 46-year-old female alert. She has under developed thighs and hip muscles. She walks well without limp or Trendelenburg sag. Both hips have full range of motion without discomfort. Negative Stinchfield maneuver bilaterally. Negative straight leg raise bilaterally. Moderate tenderness over both trochanteric bursa to palpation. Mild weakness with abductor testing lateral position of both hips. 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 She has had this in the past. Patient states she has lost quite a bit of weight since being at the [facility] and I think this could be contributing to set of her symptoms. She was wanting to have cortisone injections for the pain. I declined doing this for her. Her blood sugars are weight too high for it to be safe to give her injections. I have recommended that they start a course of formal physical therapy for hip bursitis protocol at the care center. She asked about getting some lidocaine patches to put on the hips to see if this will help and I think this is reasonable given orders for that as well. I do not think that she is a candidate for anti-inflammator ies given her cirrhosis and her uncontrolled diabetes. We will try these measures if her sugars ever become controlled in the future we may be able to try injections at that time otherwise we will see her back as needed. 30 minutes was spent treatment patient with more than half of this in [id number] conversation [email or web address] Not available 05/02/2022 16:58:15 Plan of Treatment Reminders Order Date Submit Date Provider Last Modified By Organization Details Last Modified Time Details Appointments None recorded. Lab None recorded. Referral None recorded. Procedures None recorded. Surgeries None recorded. Imaging XR, hip + pelvis, unilateral 2022 [id number] [email or web address] [facility], [address], [place], [address], 3 11:14:22 Medication Orders None recorded. Patient TargetsNo targets recorded. Patient InstructionsNo instructions recorded. Reason for Referral None Reported. Results Created Date Observation Date Name Description Value Unit Range Abnormal Flag Note LastModifiedBy Organization Detail LastModifiedTime 12/13/19 21 12/10/2020 XR, hip + pelvi s, unila teral , 2 or 3 view No observ ation record ed. [id number] Not Available 04/23/2022 20:41:33 01/11/20 21 XR, hip + pelvi s, bilat eral No observ ation record ed. [id number] [facility] [place] [address], [place], [address], 04/23/2022 20:41:33 05/03/19 23 XR, hip + pelvi s, unila teral No observ ation record ed. [email or web address] [facility] [place] [address], [place], [address], 05/02/2022 16:54:33 Result Notes None recorded. Problems Name Problem SNOMED Code Status Onset Date Resolution Date Notes Provider Name and Address Organization Details Recorded Time Pain of right hip joint [id number] Active 2022 Ronak Grayson, WHIT null, [place] [facility] 14:51:38 Problem Notes None recorded. Procedures Surgical History Date Name Laterality Status Provider Name and Address Organization Details Recorded Time Back completed Not Available [facility] 02/2022 20:39:42 section completed Not Available [facility] 04/23/2022 20:39:42 Imaging Results None recorded. Procedure Notes None recorded. Medical Equipment None Reported. Allergies No known drug allergies Medications Name Sig Start Date Stop Date Status Note LastModified by Organization Details LastModified Time quetiapine 25 mg tablet TAKE 1 TABLET BY MOUTH EVERY MORNING 05/02 completed Not Available Not Available Not Available cyclobenzap rine 10 mg tablet 01/10 completed Not Available Not Available Not Available furosemide 40 mg tablet 05/02 completed Not Available Not Available Not Available hydralazine 10 mg tablet TAKE 1 TABLET BY MOUTH TWICE DAILY 05/02 completed Not Available Not Available Not Available gabapentin 600 mg tablet 05/02 completed Not Available Not Available Not Available paroxetine 10 mg tablet 05/02 completed Not Available Not Available Not Available trazodone 50 mg tablet TAKE 1 TABLET BY MOUTH AT BEDTIME NEEDED 05/02 completed Not Available Not Available Not Available azithromyci n 250 mg tablet 02/07 completed Not Available Not Available Not Available benzonatate 200 mg capsule 05/02 completed Not Available Not Available Not Available ondansetron HCl 4 mg tablet TAKE 1 TABLET BY MOUTH EVERY 8 HOURS 05/02 completed Not Available Not Available Not Available prednisone 20 mg tablet TAKE 1 TABLET BY MOUTH TWICE DAILY 05/02 completed Not Available Not Available Not Available spironolact one 100 mg tablet active Not Available Not Available Not Available propranolol ER 60 mg capsule,24 hr,extended release TAKE 1 CAPSULE BY MOUTH DAILY 05/02 completed Not Available Not Available Not Available Lantus U-100 Insulin 100 unit/mL subcutaneou s solution active Not Available Not Available N ot Available thiamine HCl (vitamin B1) 100 mg tablet Take by oral route. active Not Available Not Available No t Available propranolol 60 mg tablet active Not Available Not Available Not Available peg-electro lyte solution 420 gram oral solution TAKE DIRECTED 05/02 completed Not Available Not Available Not Available tramadol 50 mg tablet TAKE 1 TABLET BY MOUTH EVERY 8 HOURS NEEDED FOR PAIN 05/02 completed Not Available Not Available Not Available quetiapine 100 mg tablet TAKE 1 TABLET BY MOUTH EVERY EVENING active Not Available Not Available No t Available butalbital- acetaminoph en-caffeine 50 mg-325 mg-40 mg tablet TAKE 1 TABLET BY MOUTH EVERY DAY NEEDED FOR 30 DAYS 05/02 completed Not Available Not Available Not Available ketorolac 10 mg tablet 01/10 completed Not Available Not Available Not Available carbamazepi ne 200 mg tablet 05/02 completed Not Available Not Available Not Available chlordiazep oxide 5 mg capsule TAKE 1 CAPSULE BY MOUTH THREE TIMES DAILY NEEDED FOR ANXIETY 05/02 completed Not Available Not Available Not Available magnesium oxide 400 mg (241.3 mg magnesium) tablet TAKE 1 TABLET BY MOUTH DAILY active Not Available Not Available No t Available lorazepam 0.5 mg tablet active Not Available Not Available Not Available OneTouch Ultra Test strips USE TO TEST TWICE DAILY active Not Available Not Available No t Available Kenalog 10 mg/mL suspension for injection In office injection administe red by the provider 05/02 completed [facility]: 0003- [phone]- [phone] Not Available Not Available Not Available amlodipine 10 mg tablet TAKE 1 TABLET BY MOUTH EVERY DAY 05/02 completed Not Available Not Available Not Available benzonatate 100 mg capsule TAKE 1 CAPSULE BY MOUTH EVERY 8 HOURS NEEDED 05/02 completed Not Available Not Available Not Available paroxetine 30 mg tablet 05/02 completed Not Available Not Available Not Available paroxetine 20 mg tablet 05/02 completed Not Available Not Available Not Available pantoprazol e 40 mg tablet,gino yed release 05/02 completed Not Available Not Available Not Available lisinopril 10 mg tablet TAKE 1 TABLET BY MOUTH BEFORE SUPPER 05/02 completed Not Available Not Available Not Available lidocaine 5 % topical patch APPLY 1 PATCH TOPICALLY TO THE SKIN EVERY DAY. MAY WEAR UP TO 12 HOURS 05/02 completed Not Available Not Available Not Available promethazin e 25 mg tablet TAKE 1/2 TABLET BY MOUTH EVERY 6 HOURS NEEDED FOR NAUSEA 05/02 completed Not Available Not Available Not Available Advair Diskus 250 mcg-50 mcg/dose powder for inhalation USE 1 INHALATIO N BY MOUTH TWICE DAILY 05/02 completed Not Available Not Available Not Available nicotine 21 mg/24 hr daily transdermal patch APPLY 1 PATCH TO SKIN DAILY. DO NOT USE WHILE SMOKING 02/07 completed Not Available Not Available Not Available gabapentin 300 mg capsule active Not Available Not Available Not Available sertraline 25 mg tablet active Not Available Not Available Not Available omeprazole 20 mg capsule,del ayed release active Not Available Not Available Not Available Banophen 25 mg capsule TAKE 1 CAPSULE BY MOUTH EVERY NIGHT AT BEDTIME 05/02 completed Not Available Not Available Not Available diclofenac sodium 75 mg tablet,gino yed release Take 1 tablet twice a day by oral route. 05/02 completed Not Available Not Available Not Available folic acid 1 mg tablet TAKE 1 TABLET BY MOUTH EVERY DAY active Not Available Not Available No t Available mirtazapine 15 mg tablet 05/02 completed Not Available Not Available Not Available levofloxaci n 750 mg tablet TAKE 1 TABLET BY MOUTH EVERY DAY 02/07 completed Not Available Not Available Not Available methylpredn isolone 4 mg tablets in a dose pack FOLLOW PACKAGE DIRECTION S 02/07 completed Not Available Not Available Not Available albuterol sulfate HFA 90 mcg/actuati on aerosol inhaler INHALE 1 OR 2 PUFFS INTO THE LUNGS EVERY 4 HOURS NEEDED FOR WHEEZING 05/02 completed Not Available Not Available Not Available methylpredn isolone 16 mg tablet 02/07 completed Not Available Not Available Not Available glipizide 5 mg tablet TAKE 1 TABLET BY MOUTH DAILY WITH BREAKFAST 05/02 completed Not Available Not Available Not Available naproxen 500 mg tablet 01/10 completed Not Available Not Available Not Available spironolact one 50 mg tablet active Not Available Not Available Not Available oxycodone 5 mg tablet TAKE 1 TABLET BY MOUTH EVERY 6 HOURS NEEDED 05/02 completed Not Available Not Available Not Available hydroxyzine pamoate 25 mg capsule 05/02 completed Not Available Not Available Not Available insulin lispro (U-100) 100 unit/mL subcutaneou s pen active Not Available Not Available Not Available azithromyci n 500 mg tablet TAKE 1 TABLET BY MOUTH EVERY DAY 01/10 completed Not Available Not Available Not Available metformin ER 750 mg tablet,exte nded release 24 hr TAKE 1 TABLET BY MOUTH DAILY WITH THE EVENING MEAL active Not Available Not Available No t Available cholestyram ine (with sugar) 4 gram powder for susp in a packet MIX AND DRINK 1 PACKET BY MOUTH TWICE DAILY NEEDED 05/02 completed Not Available Not Available Not Available nitrofurant oin monohydrate /macrocryst als 100 mg capsule TAKE 1 CAPSULE BY MOUTH EVERY 12 HOURS FOR 10 DAYS 05/02 completed Not Available Not Available Not Available lactulose 10 gram/15 mL oral solution active Not Available Not Available Not Available lidocaine (PF) 10 mg/mL (1 %) injection solution In office injection administe red by the provider 05/02 completed [facility]: [phone]- [phone]- [phone] Not Available Not Available Not Available Advair HFA 115 mcg-21 mcg/actuati on aerosol inhaler INHALE 2 PUFFS INTO THE LUNGS EVERY 12 HOURS active Not Available Not Available No t Available quetiapine 50 mg tablet 05/02 completed Not Available Not Available Not Available Lantus Solostar U-100 Insulin 100 unit/mL (3 mL) subcutaneou s pen 05/02 completed Not Available Not Available Not Available Dulera 200 mcg-5 mcg/actuati on HFA aerosol inhaler 05/02 completed Not Available Not Available Not Available Farxiga 10 mg tablet TAKE 1 TABLET BY MOUTH EVERY DAY active Not Available Not Available No t Available potassium chloride ER 20 mEq tablet,exte nded release TAKE 1 TABLET BY MOUTH DAILY 05/02 completed Not Available Not Available Not Available naloxone 4 mg/actuatio n nasal spray active Not Available Not Available Not Available OneTouch Ultra2 Meter USE DIRECTED TO TEST TWICE DAILY active Not Available Not Available No t Available OneTouch Delica Plus Lancet 33 gauge USE TO TEST TWICE DAILY active Not Available Not Available No t Available OneTouch Delica Plus Lancet 30 gauge active Not Available Not Available Not Available Daily-Jeanine (with folic acid) 400 mcg tablet 05/02 completed Not Available Not Available Not Available Vitals Date Recorded Body height Body mass index (BMI) Body weight Provider Name and Address Organization Details Last Updated DateTime 05/02/2022 162.56 cm 26.9 kg/m2 11035 g WHIT Goode [place] [facility] [employer] [facility] 05/02/2022 14:46:04 Date Recorded Body mass index (BMI) Body height Body weight Provider Name and Address Organization Details Last Updated DateTime 01/10/2021 30.3 kg/m2 160.02 cm 15566.3 g Not Available [employer] 04/23/2022 20:39:47 Date Recorded Body height Provider Name an d Address Organization Details Last Updated DateTime 02/07/2021 160.02 cm Not Available [employer] 20:39:46 Social History None recorded. Functional Status Question Answer Note LastModified by Organization D etails LastModified Time What is your level of alcohol consumption? None [email or web address] Information not available 05/02/2022 Mental Status None recorded. Family History Relationship Description Onset Age of this Age Resolved Age Notes LastModified by Organization Details LastModified Time Unspecified Relation Family history of malignant neoplasm [id number] Not available 04/23/2022 20:39:43 Unspecified Relation Hypertensive disorder [id number] Not available 04/23/2022 20:39:43 Unspecified Relation Diabetes mellitus [id number] Not available 04/23/2022 20:39:43 Medical History Condition Response BLINDNESS N KIDNEY STONES N MRSA N CARPAL TUNNEL SYNDROME N LUNG DISEASE/DISORDER N HISTORY OF DRUG ABUSE N COPD Y RADIATION / CHEMOTHERAPY N SPORTS INJURY N ANKLE PAIN N BLOOD DISEASES N SCHIZOPHRENIA N SHINGLES N SHOULDER PAIN N DEPRESSION (INCLUDING POST ) N BOWEL PROBLEMS N STROKE/TIA N KNEE PAIN N ULCERS N BENIGN PROSTATIC HYPERPLASIA N OBESITY N GERD/NAUSEA N ANEURYSM N URINARY/BLADDER/KIDNEY PROBLEMS N CORONARY ARTERY DISEASE (CAD) N ADDICTION CONCERNS N USE OF BLOOD THINNERS N SKIN PROBLEMS N EMPHYSEMA N MUSCLE,JOINT OR BONE PROBLEMS N DVT N STOMACH ULCERS N BLOOD CLOTS N USE OF NSAIDS N CONCUSSION OR SPINAL TRAUMA N NEUROPATHY N AIDS/HIV N FRACTURES N HYPERTENSION Y ELBOW PAIN N TOURETTE'S N Metal allergy N ANXIETY DISORDER N BLOOD TRANSFUSION N ANEMIA/BLOOD DISORDER N BIPOLAR DISORDER N BRONCHITIS N OSTEOARTHRITIS N TUBERCULOSIS N FOOT PROBLEM N HEART VALVE DISORDERS N ALLERGIES/HAYFEVER N SOFT TISSUE INJURY N INFECTIOUS DISEASE N HEART ARRHYTHMIA N INSOMNIA N HIGH CHOLESTEROL / HYPERLIPIDEMIA N RHEUMATOID ARTHRITIS N EDEMA N CHRONIC PAIN SYNDROME N CAROTID BLOCKAGE N BACK / NECK PROBLEMS N HAVE YOU BEEN HOSPITALIZED OR SEEN IN [facility] IN THE PAST YEAR ? N BURSITIS N HERNIATED DISC N DIALYSIS N FIBROMYALGIA N OSTEOPOROSIS N ARTHRITIS Y NO SIGNIFICANT PAST MEDICAL HISTORY N PERIPHERAL NEUROPATHY N DIABETES, TYPE Y HEARTBURN / REFLUX N HEPATITIS / LIVER DISEASE N GOUT N ALZHEIMER'S DISEASE N SLEEP DISORDER N HERPES N HEADACHES/MIGRAINES N SEIZURES/EPILEPSY N VASCULAR DISEASE N Blood Disorder N HIP PAIN N DIZZINESS N HEAD TRAUMA OR INJURY N HEART DISEASE/HEART PROBLEMS N MULTIPLE SCLEROSIS N CARDIAC ARRHYTHMIA N CANCER: SPECIFY N ANESTHESIA COMPLICATIONS N ATRIAL FIBRILLATION N AUTOIMMUNE DISEASE N Gynecological HistoryNo gynecological history recorded. Obstetrics History GPAL:G 0 P 0 0 0 0 Past Encounters Encounter ID Performer Location Encounter Start Date Encounter Closed Date Diagnosis/Indication Diagnosis SNOMED-CT Code Diagnosis ICD10 Code Diagnosis Note [id number] Drake Rankin MD [facility]_[address] [address] 01/10/2021 00:00:00 01/10/2021 11:36:34 [id number] Drake Rankin MD [facility]_[address] [address] 02/07/2021 00:00:00 02/07/2021 13:00:25 [id number] Drake Rankin MD [facility] [address] [place] [address] 05/02/2022 14:26:22 05/05/2022 09:42:30 Pain of right hip joint [id number] 32283 M25.551 Health Concerns Section Related Observation LastModified by Organization Detai ls LastModified Time None Recorded Concern Status LastModified by Organization Details LastModified Time None Recorded Advance Directives Directive None Recorded Payers Insurance Date Sequence Insurance Name Policy Number Policy [place] Covered Member ID [place] Member ID Guarantor Name 05/05/2022 1 [facility] (MEDICAID HMO) [id number] Trisha Rain [id number] [facility] OBG[facility] Episode No OBEpisode recorded.
[2024-08-31] MEDS: MORPHINE SULFATE (*CRX) 4 MG/ML INJ IV PUSH (01:53)
[2024-08-31] MEDS: ONDANSETRON INJ 4 MG/2 ML VIAL IV PUSH (01:53)
--- NOTE | 2024-08-31 02:04 | ED_ITS ---
HPI - Fall General Chief Complaint: Fall Stated Complaint: RIGHT HIP PAIN S/P FALL Time Seen by Provider: 08/31/24 00:56 History of Present Illness HPI Narrative: Patient is a 49-year-old female who presents to the emergency department this evening status post a ground level fall that occurred at her [facility]. Patient states that she ambulates using a walker but she was only going a short distance between her bed and the bathroom so she did not use the walker. States that her right leg gave out which happens frequently causing the left leg to give out and causing the patient to fall. Patient landed on her right hip. Patient also admits that she did take some melatonin and trazodone a few minutes before she got up to go to the bathroom and did feel slightly dizzy/lightheaded which may have precipitated the fall. Believes that she may have gotten up too fast. States that she was not able to get up after the fall and has been having severe pain when she tries to put any weight on her right lower extremity. Denies hitting her head, denies any loss of consciousness. Denies any blood thinner use. There is no additional modifying, alleviating, or precipitating factors at this time. Related Data Home Medications ?Medication ?Instructions ?Recorded ?Confirmed ?Last Taken ?Type alprazolam 0.25 mg tablet mg PO 04/05/24 05/27/24 Unknown History furosemide 40 mg tablet mg PO 04/05/24 05/27/24 Unknown History insulin lispro 100 unit/mL subcut 04/05/24 05/27/24 Unknown History subcutaneous pen lactulose 10 gram/15 mL oral PO 04/05/24 05/27/24 Unknown History solution (Constulose) meloxicam 7.5 mg tablet mg PO 04/05/24 05/27/24 Unknown History metformin 750 mg tablet,extended mg PO 04/05/24 05/27/24 Unknown History release 24 hr montelukast 10 mg tablet mg PO 04/05/24 05/27/24 Unknown History omeprazole 20 mg capsule,delayed mg PO 04/05/24 05/27/24 Unknown History release oxycodone 5 mg tablet mg PO 04/05/24 05/27/24 Unknown History propranolol 60 mg tablet mg PO 04/05/24 05/27/24 Unknown History spironolactone 50 mg tablet mg PO 04/05/24 05/27/24 Unknown History trazodone 150 mg tablet mg PO 04/05/24 05/27/24 Unknown History albuterol 90 mcg-budesonide 80 2 inh inhalation ONCE 04/22/24 05/27/24 Unknown History mcg/actuation HFA aerosol inhaler (Airsupra) cholecalciferol (vitamin D3) 1,250 1,250 mcg PO WEEKLY 04/22/24 05/27/24 Unknown History mcg (50,000 unit) capsule dextrose 40 % oral gel 10 g PO Q15M PRN 04/22/24 05/27/24 Unknown History duloxetine 20 mg capsule,delayed 40 mg PO DAILY 04/22/24 05/27/24 Unknown History release (Cymbalta) gabapentin 300 mg capsule mg PO 04/22/24 05/27/24 Unknown History glucagon HCl 1 mg solution for 1 mg subcut Q20M PRN 04/22/24 05/27/24 Unknown History injection (Glucagon (HCl) Emergency Kit) insulin glargine 100 unit/mL 40 unit subcut .HS 04/22/24 05/27/24 Unknown History subcutaneous solution (Lantus U-100 Insulin) ipratropium 0.5 mg-albuterol 3 mg 3 ml inhalation QID PRN 04/22/24 05/27/24 Unknown History (2.5 mg base)/3 mL nebulization soln lidocaine 4 % topical patch 2 patch topical DAILY PRN 04/22/24 05/27/24 Unknown History melatonin 5 mg capsule mg PO 04/22/24 05/27/24 Unknown History miconazole nitrate 2 % topical 1 applic topical DAILY 04/22/24 05/27/24 Unknown History powder naloxone 4 mg/actuation nasal 4 mg intranasal Q2M PRN 04/22/24 05/27/24 Unknown History spray (Narcan) sertraline 100 mg tablet 200 mg PO DAILY 04/22/24 05/27/24 Unknown History thiamine HCl (vitamin B1) 100 mg 100 mg PO DAILY 04/22/24 05/27/24 Unknown History capsule fluticasone 250 mcg-salmeterol 50 1 inh inhalation BID 05/27/24 05/27/24 Unknown History mcg/dose blistr powdr for inhalation (Advair Diskus) Allergies Allergy/AdvReac Type Severity Reaction Status Date / Time hydroxyzine (From Vistaril) AdvReac Unknown Unknown Verified 08/31/24 04:13 Review of Systems Review of Systems: All systems are reviewed and are negative unless stated otherwise in the HPI. [facility] Past Medical History Medical History Asthma HTN (hypertension) Depression Insomnia Anxiety Rhinitis Neuropathy Diabetes Social History Social History Smoking packs per day: 2 Smoking cigarettes per day: 40.0 Years smoked: 80 Smoking pack-years: 160.00 Smoking status: Current every day smoker Tobacco type: cigarettes Additional smoking assessment comments: Now smoking 4 cigs/day since 2021. Alcohol intake: current Substance use: current Substance use type: marijuana and prescription drug Do You Feel Safe in your Home?: Yes Lack of Transportation: YES Lack of Food: Never True Current Housing: I Have Housing Concerned About Future Housing: YES Difficulty Paying Gas/Electric Bills: Decline to Answer Difficulty Paying for Meds: YES Currently Unemployed: YES Exam Narrative: General: Alert, awake, afebrile, in no acute distress. HEENT: PERRL, no rhinorrhea, no post nasal drip, oropharynx clear. Neck: Trachea midline, no JVD, no lymphadenopathy. Cardiovascular: Regular rate and rhythm, no murmurs, rubs or gallops, no peripheral edema. Respiratory: Clear to auscultation bilaterally, no tachypnea, no wheezing, no rhonchi, no rubs, no respiratory distress. Abdomen: Soft, nontender, nondistended, no rebound, no guarding, no peritoneal signs. Musculoskeletal: No joint swelling or deformity, normal muscle tone, right lower extremity is not shortened or rotated, tenderness to palpation over the lateral aspect of the right hip joint. Skin: No rashes or petechia, no signs of infection. Psychiatric: Alert and oriented, normal behavior and judgment for situation. Neurological: Alert and oriented to person, place, and time. Follows all commands. No focal deficits, speech is clear and fluent. Course Vital Signs Vital signs: Vital Signs Temperature 97.7 F 08/31/24 00:55 Pulse Rate 67 08/31/24 00:55 Respiratory Rate 20 08/31/24 00:55 Blood Pressure 105/55 L 07/09/25 00:55 Pulse Oximetry 97 08/31/24 00:55 Oxygen Delivery Room Air 08/31/24 00:55 Temperature 97.7 F 08/31/24 00:55 Pulse Rate 67 08/31/24 04:07 Respiratory Rate 16 08/31/24 04:07 Blood Pressure 103/58 L 08/31/24 04:07 Pulse Oximetry 94 08/31/24 04:07 Oxygen Delivery Room Air 08/31/24 00:55 MDM - Fall MDM Narrative Medical decision making narrative: The patient was evaluated by myself in the emergency department. History is obtained from patient who is an independent historian and physical exam was performed. External medical records were reviewed at this time. IV was established and pertinent tests were ordered. Patient was administered 4 mg of IV morphine for pain and 4 mg IV Zofran for nausea. Imaging studies obtained included AP pelvis with right hip x-rays which was independently interpreted by me revealing no acute process, which is pending final radiology interpretation. At this time, patient did pass an ambulatory trial. She was able to walk down the hallway using a walker without any difficulty. Differential diagnosis considerations include fracture, dislocation, musculoskeletal strain. Comorbidities impacting this visit include none. I have evaluated and discussed social determinants of health with the patient that could potentially impact subsequent diagnosis and treatment plans. On repeat assessment of the patient, reevaluation revealed that the patient is doing well and is in no acute distress. Patient symptoms have improved since she arrived to our emergency department. Repeat vital signs were all reviewed and noted to be stable. Differential diagnosis and treatment plan were discussed with the patient at bedside. Patient agrees with discussion and after shared medical decision making agrees with [admission/discharge]. All questions were answered to the patient's satisfaction. Patient will follow up with her PCP in 3-5 days. Patient was provided with strict return precautions and instructed to return to the emergency department if any new or worsening symptoms develop. The patient was discharged in stable condition. Discharge Plan Discharge Clinical Impression: Acute pain of right hip, Fall from ground level Patient Disposition: NH Alf/Asst Living Condition: Improved Instructions: Antibiotic Form, Fall Prevention for Older Adults (ED), Hip Pain (ED) Additional Instructions: Please follow-up with your family doctor within the next 3-5 days. Return emergency department if any new or worsening symptoms develop. Patient Language: Citizen [place] Prescriptions: No Action trazodone 150 mg tablet PO montelukast 10 mg tablet PO alprazolam 0.25 mg tablet PO oxycodone 5 mg tablet PO lactulose [Constulose] 10 gram/15 mL solution PO metformin 750 mg tablet extended release 24 hr PO meloxicam 7.5 mg tablet PO omeprazole 20 mg capsule,delayed release(DR/EC) PO propranolol 60 mg tablet PO furosemide 40 mg tablet PO spironolactone 50 mg tablet PO insulin lispro 100 unit/mL insulin pen subcut gabapentin 300 mg capsule PO Rx Instructions: 300mg BID and 600mg at bedtime melatonin 5 mg capsule PO thiamine HCl (vitamin B1) 100 mg capsule 100 mg PO DAILY lidocaine 4 % adhesive patch,medicated 2 patch topical DAILY PRN sertraline 100 mg tablet 200 mg PO DAILY duloxetine [Cymbalta] 20 mg capsule,delayed release(DR/EC) 40 mg PO DAILY insulin glargine [Lantus U-100 Insulin] 100 unit/mL solution 40 unit subcut .HS dextrose 40 % gel 10 g PO Q15M PRN Rx Instructions: until symptoms of low blood sugar are controlled ipratropium-albuterol 0.5 mg-3 mg(2.5 mg base)/3 mL solution for nebulization 3 ml inhalation QID PRN glucagon HCl [Glucagon (HCl) Emergency Kit] 1 mg recon soln 1 mg subcut Q20M PRN Rx Instructions: until target blood sugar attained Airsupra 90-80 mcg/actuation HFA aerosol inhaler 2 inh inhalation ONCE Rx Instructions: as a single dose; may repeat up to 6 doses per day (12 inhalations) cholecalciferol (vitamin D3) 1,250 mcg (50,000 unit) capsule 1,250 mcg PO WEEKLY naloxone [Narcan] 4 mg/actuation spray,non-aerosol 4 mg intranasal Q2M PRN Rx Instructions: spray 1 dose into ONE nostril; alternate nostrils w each dose until help arrives miconazole nitrate 2 % powder 1 applic topical DAILY fluticasone propion-salmeterol [Advair Diskus] 250-50 mcg/dose blister with device 1 inh inhalation BID Rx Instructions: rinse and spit Follow-up/Referrals: Li,MD Wilver [Primary Care Provider] - 3 Days Time of Disposition: 04:50
[2024-08-31] MEDS: SODIUM CHLORIDE 0.9% IV 1,000 ML 999 ML IV CONT (02:23)
--- NOTE | 2024-08-31 04:20 | PC.NURSE ---
This RN called [facility] and spoke to Li ELI about faxing pt DNR.
--- NOTE | 2024-08-31 05:15 | PC.NURSE ---
This RN attempted to call [facility] to give report x2 with no answer. Will continue to call.
== END 2024-08-31 05:47 ==
PROVIDERS: Emergency Provider Emergency Medicine; PCP Internal Medicine
DX: M25.551 Pain in right hip (principal); F17.210 Nicotine dependence, cigarettes, uncomplicated; J45.909 Unspecified asthma, uncomplicated; I10 Essential (primary) hypertension; F32.A Depression, unspecified; F41.9 Anxiety disorder, unspecified; E11.9 Type 2 diabetes mellitus without complications; G62.9 Polyneuropathy, unspecified; Z79.4 Long term (current) use of insulin; W01.0XXA Fall on same level from slipping, tripping and stumbling without subsequent striking against object, initial encounter
CPT/HCPCS: 73502; 96361; 96374; 96375; 99284; J2270; J2405; J7030